=== PATIENT | female | born 1980 | race Caucasian/White ===

== ENCOUNTER 2017-06-28 18:26 | Emergency (ER) | payer OTHER ==
[2017-06-28 19:01] VITALS: BP 117/83
--- NOTE | 2017-06-28 21:33 | ED Physician Documentation ---
PD HPI UPPER EXT INJURY - Stated complaint Stated Complaint: RT FING LAC - Chief complaint Chief Complaint: Laceration - History obtained from History obtained from: Patient - History of Present Illness Location: Right, Finger (ring finger at PIP flexion crease.) Type of injury: Laceration (cut finger on edge of can few days ago and glued it and with bandage after cleasning it. It was good for couple days but glue came off it and opened up again. 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: Ovarian cancer, Other Other Past Medical History: supraventricular tachycardia - Past Surgical History Past Surgical History: Yes /INSPECTION AND TESTING SUPERVISOR: Oophrectomy - Present Medications Home Medications: Ambulatory Orders Medication Instructions Recorded Confirmed No Known Home Medications [No 06/28/17 06/28/17 Known Home Medications] - Allergies Allergies/Adverse Reactions: Allergies Allergy/AdvReac Type Severity Reaction Status Date / Time No Known Drug Allergies Allergy Verified 06/28/17 21:23 - Social History Does the pt smoke?: No Smoking Status: Never smoker Does the pt drink ETOH?: No Does the pt have substance abuse?: No - Immunizations Immunizations are current?: Yes - POLST Patient has POLST: No PD ED PE NORMAL - Vitals Vital signs reviewed: Yes - General General: Alert and oriented X 3, No acute distress, Well developed/nourished - Derm Derm: Normal color, Warm and dry - Extremities Extremities: Other (right ring finger with laceration of palmar DIP flexion crease. Wound appears clean and without signs of infection. ) Results - Vitals Vitals: Oxygen O2 Source Room air Procedures - Laceration (location) right ring finger Length in cm: 1.2 Wound type: Linear, Into subcut fat. No: Into muscle Neurovascular status: Sensory intact, Motor intact, Vascular intact Tendon involvement: Tendon intact. No: Tendon Injury Anesthesia: Lidocaine 1% Wound Preparation: Irrigated copiously NS Skin layer closure: Nylon, Interrupted, Size #-0 - enter number (4), Sutures - enter # (4) Other: Patient tolerated well, Tetanus UTD Complexity: Simple PD MEDICAL DECISION MAKING - ED course Complexity details: considered differential (delayed primary closure of well appearing wound without signs of infection. ), d/w patient Departure - Departure Disposition: 01 Home, Self Care Clinical Impression: Finger laceration Qualifiers: Encounter type: initial encounter Finger: ring finger Damage to nail status: without damage Foreign body presence: without foreign body Laterality: right Qualified Code(s): S61.214A - Laceration without foreign body of right ring finger without damage to nail, initial encounter Condition: Stable Record reviewed to determine appropriate education?: Yes Instructions: ED Laceration Hand Follow-Up: Isidoro Polk MD [Primary Care Provider] - Comments: It is okay to wash and shower. Clean off the wound twice a day with soap and water, or peroxide and water. Apply some antibiotic ointment to it to keep it moist. Also to watch for signs of infection such as purulence, redness or increasing pain. Return to your primary care or the ER at the specified time for suture removal. Suture removal 9 or 10 days. Tylenol or ibuprofen if needed for pains. Discharge Date/Time: 06/28/17 21:57
== END 2017-06-28 21:57 | disposition home or self-care (01) ==
LOC: ED 18:26
DX: S61.214A Laceration without foreign body of right ring finger without damage to nail, initial encounter (principal); W26.8XXA Contact with other sharp object(s), not elsewhere classified, initial encounter; Z85.43 Personal history of malignant neoplasm of ovary; Z90.721 Acquired absence of ovaries, unilateral
CPT/HCPCS: 12001; 99282; 99283

== ENCOUNTER 2018-05-18 12:13 | Emergency (ER) | payer OTHER ==
[2018-05-18 12:55] LABS: BASOPHILS % (AUTO) 0.5 %; EOSINOPHILS # (AUTO) 0.1 10^3/uL (0.0-0.7); EOSINOPHILS % (AUTO) 0.7 %; HGB - HEMOGLOBIN 13.7 g/dL (12.0-16.0); MEAN CORPUSCULAR HEMOGLOBIN 31.5 pg (27.0-31.0); MEAN CORPUSCULAR HGB CONC 34.3 g/dL (32.0-36.0); MEAN CORPUSCULAR VOLUME 91.7 fL (81.0-99.0); MEAN PLATELET VOLUME 9.4 fL (7.9-10.8); MONOCYTES # (AUTO) 0.6 10^3/uL (0.0-1.0); MONOCYTES % (AUTO) 6.3 %; NEUTROPHILS # (AUTO) 6.8 10^3/uL (1.5-6.6); NEUTROPHILS % (AUTO) 71.5 %; PLT - PLATELET COUNT 204 10^3/uL (130-450); RED BLOOD COUNT 4.35 10^6/uL (4.20-5.40); RED CELL DISTRIBUTION WIDTH 12.8 % (12.0-15.0); WHITE BLOOD COUNT 9.5 x10^3/uL (4.8-10.8)
[2018-05-18 13:04] LABS: ALBUMIN 4.3 g/dL (3.2-5.5); ALBUMIN/GLOBULIN RATIO 1.2 (1.0-2.2); BILIRUBIN,TOTAL 0.6 mg/dL (0.2-1.0); CALCIUM 9.2 mg/dL (8.5-10.3); CREATININE 0.7 mg/dL (0.4-1.0); TOTAL PROTEIN 7.8 g/dL (6.7-8.2)
--- NOTE | 2018-05-18 14:04 | ED Physician Documentation ---
History of Present Illness - Stated complaint Stated Complaint: LOWER ABD PX - Chief complaint Chief Complaint: General - History obtained from History obtained from: Patient - History of Present Illness Timing: How many days ago (4) Pain level max: 9 Pain level now: 6 Improved by: nohing Worsened by: movement, palpation - Additonal information Additional information: 38-year-old female with pelvic pain today. Was seen by gynecology this morning and sent here for an ultrasound to rule out ovarian torsion. She was seen by Dr. Gomez. Patient states R ovary was removed in the past. Hx of Cervical CA and LEEP procedures. 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, Other - Past Surgical History Past Surgical History: Yes /BREEDING MANAGER: Oophrectomy - Present Medications Home Medications: Ambulatory Orders Medication Instructions Recorded Confirmed No Known Home Medications 06/28/17 06/28/17 - Allergies Allergies/Adverse Reactions: Allergies Allergy/AdvReac Type Severity Reaction Status Date / Time No Known Drug Allergies Allergy Verified 06/28/17 21:23 - Social History Does the pt smoke?: No Smoking Status: Never smoker Does the pt drink ETOH?: No Does the pt have substance abuse?: No - Immunizations Immunizations are current?: Yes - POLST Patient has POLST: No PD ED PE NORMAL - Vitals Vital signs reviewed: Yes - General General: Alert and oriented X 3 - HEENT HEENT: Moist mucous membranes - Neck Neck: Supple, no meningeal sign - Cardiac Cardiac: RRR - Respiratory Respiratory: No respiratory distress, Clear bilaterally - Abdomen Abdomen: Soft, Non distended, Other (mild ttp LLQ) - Back Back: No spinal TTP - Derm Derm: Warm and dry - Neuro Neuro: Alert and oriented X 3 - Psych Psych: Normal mood, Normal affect Results - Vitals Vitals: Vital Signs - 24 hr 05/18/18 05/18/18 12:22 14:19 Temperature 36.2 C L 36.5 C Heart Rate 74 61 Respiratory 18 18 Rate Blood Pressure 116/75 116/78 O2 Saturation 100 100 Oxygen O2 Source Room air - Labs Labs: Laboratory Tests 05/18/18 05/18/18 05/18/18 12:43 12:43 13:13 WBC 9.5 RBC 4.35 Hgb 13.7 Hct 39.9 MCV 91.7 MCH 31.5 H MCHC 34.3 RDW 12.8 Plt Count 204 MPV 9.4 Neut # (Auto) 6.8 H Lymph # (Auto) 2.0 [place] # (Auto) 0.6 Eos # (Auto) 0.1 Baso # (Auto) 0.0 Absolute Nucleated RBC 0.01 Nucleated RBC % 0.1 Sodium 135 Potassium 3.5 Chloride 106 Carbon Dioxide 24 Anion Gap 5.0 L BUN 19 Creatinine 0.7 Estimated GFR (MDRD) 94 Glucose 132 H Calcium 9.2 Total Bilirubin 0.6 AST 19 ALT 13 Alkaline Phosphatase 53 Total Protein 7.8 Albumin 4.3 Globulin 3.5 Albumin/Globulin Ratio 1.2 Lipase 22 Urine Color YELLOW Urine Clarity CLEAR Urine pH 6.0 Ur Specific Lindsay <=1.005 Urine Protein NEGATIVE Urine Glucose (UA) NEGATIVE Urine Ketones NEGATIVE Urine Occult Blood SMALL H Urine Nitrite NEGATIVE Urine Bilirubin NEGATIVE Urine Urobilinogen 0.2 (NORMAL) Ur Leukocyte Esterase TRACE H Urine RBC 0-5 Urine WBC 4-5 Ur Squamous Epith Cells RARE Squamous Urine Bacteria Rare Ur Microscopic Review INDICATED Urine Culture Comments INDICATED Urine HCG, Qual NEGATIVE - Rads (name of study) pelvic US Radiology: Prelim report reviewed, EMP read contemporaneously, See rad report (No Doppler evidence of left ovarian torsion. . No intact left ovarian cyst. No free fluid or adnexal mass evident. Surgically absent right ovary. Prominent uterus with upper normal endometrial thickness at 13.5 mm without vascularity or discernible polyp. A 2.9 cm fundal subserosal fibroid. ) PD MEDICAL DECISION MAKING - ED course Complexity details: reviewed results, re-evaluated patient, considered differential, d/w patient, d/w systems consultant ED course: 38-year-old female presents to the emergency department with left-sided pelvic pain. Concern for ovarian torsion, ultrasound is normal for this. Does have a collapsing cyst on ultrasound, possible etiology of her pain? I discussed the case with gynecology, Dr. Gomez who recommends follow-up in the clinic. He wrote her for pain medication earlier today. Patient declines pain medication here. Patient counseled This document was made in part using voice recognition software. While efforts are made to proofread this document, sound alike and grammatical errors may occur. Departure - Departure Disposition: 01 Home, Self Care Clinical Impression: Nabothian cyst Ovarian cyst Qualifiers: Laterality: left Qualified Code(s): N83.202 - Unspecified ovarian cyst, left side Condition: Good Instructions: ED Cyst Ovarian Follow-Up: Isidoro Polk MD [Primary Care Provider] - Raudel Gomez MD [Provider Admit Priv/Credential] - Within 1 week Comments: Take the medications as prescribed by Dr. Gomez today. Return if you worsen. Do not drink alcohol or drive while on narcotic pain medicine. Note that many narcotic pain relievers also contain tylenol/acetaminophen. Please ensure that your total dose of acetaminophen from all sources does not exceed 3 grams (3000mg) per day. You may constipated on this medication, take a stool softener such as "Colace" twice a day while you are on it. Also recommend a [id number] laxative such as senna or MiraLAX any day that you do not have a bowel movement. If you received narcotic pain medication in the emergency department, do not drive or operate machinery for the next 24 hours. Discharge Date/Time: 05/18/18 14:42
[2018-05-18 14:21] VITALS: BP 116/78
[2018-05-18 14:22] LABS: BILIRUBIN,URINE NEGATIVE (NEGATIVE); GLUCOSE, URINE (UA) NEGATIVE (NEGATIVE); KETONES,URINE (UA) NEGATIVE (NEGATIVE); LEUKOCYTE ESTERASE, URINE TRACE (NEGATIVE); NITRITE,URINE NEGATIVE (NEGATIVE); OCCULT BLOOD,URINE SMALL (NEGATIVE); PROTEIN,URINE NEGATIVE (NEGATIVE); UROBILINOGEN,URINE 0.2 (NORMAL) E.U./dL (NORMAL)
[2018-05-18 14:36] LABS: CLARITY,URINE CLEAR (CLEAR); HCG UR QUAL NEGATIVE
[2018-05-18 14:37] LABS: BACTERIA,URINE Rare /HPF (None Seen); RBC,URINE 0-5 /HPF (0-5); SQUAMOUS EPITHELIAL CELL,UR RARE Squamous (<= Few)
--- NOTE | 2018-05-18 15:10 | Ultrasound Report ---
Reason: pelvic pain, L Procedure Date: 05/18/2018 Accession Number: [id number] / [id number] Procedure: US - Pelvic w/Transvag+Doppler Comp CPT Code: FULL RESULT: EXAM: PELVIC ULTRASOUND WITH OVARIAN DOPPLER EXAM DATE: 05/18/2018 12:54 PM. CLINICAL HISTORY: Left pelvic pain. Rule out left ovarian torsion. COMPARISON: Noncontrast CT abdomen and pelvis 06/28/2015. TECHNIQUE: Realtime transabdominal pelvic scan for general evaluation, followed by transvaginal scan for further detail, with image documentation. Color flow Doppler and spectral analysis of left ovary performed to assess blood flow. FINDINGS: Uterus: Anteverted 11.8 x 5.1 x 6 cm in transabdominal scan, volume 188 cc. Central endometrial echo complex measures 13.5 mm thick on TB skin, without vascularity on color Doppler. No intracavitary fluid or polyp identified. Mildly heterogeneous myometrial echotexture. A subserosal fundal fibroid measures 2.1 x 1.8 x 2.9 cm. Cervix: No abnormality identified. Right Ovary: Surgically absent. Left Ovary: 3.7 x 2.7 x 3.8 cm, volume 5.3 cc. A probable small collapsed cystic remnant. No cyst by size criteria. Left ovarian Doppler: Color flow and arterial and venous spectral Doppler documented in the left ovary. Peak systolic velocity 32 cm/s, RI 0.65. Free Fluid: None. Other: No adnexal mass evident. IMPRESSION: 1. No Doppler evidence of left ovarian torsion. 2. No intact left ovarian cyst. No free fluid or adnexal mass evident. 3. Surgically absent right ovary. 4. Prominent uterus with upper normal endometrial thickness at 13.5 mm without vascularity or discernible polyp. A 2.9 cm fundal subserosal fibroid. RADIA
== END 2018-05-18 14:42 | disposition home or self-care (01) ==
LOC: ED 12:13
DX: N88.8 Other specified noninflammatory disorders of cervix uteri (principal); N83.202 Unspecified ovarian cyst, left side; Z11.3 Encounter for screening for infections with a predominantly sexual mode of transmission
CPT/HCPCS: 36415; 76830; 76856; 80053; 81001; 81003; 81025; 83690; 85025; 87086; 87491; 87591; 93975; 99283

== ENCOUNTER 2018-05-18 17:16 | Outpatient (CLI) | payer OTHER | END 2018-05-18 17:17 | disposition home or self-care (01) | LOC: LAB.R 17:16 | PROVIDERS: ATTEND Obstetrics & Gynecology | DX: Z11.3 Encounter for screening for infections with a predominantly sexual mode of transmission (principal) | CPT/HCPCS: 87491; 87591 ==

== ENCOUNTER 2018-06-26 13:38 | Outpatient (CLI) | payer OTHER ==
--- NOTE | 2018-06-26 17:06 | Ultrasound Report ---
Reason: ENDOMETRIUM THICKENED Procedure Date: 06/26/2018 Accession Number: [id number] / [id number] Procedure: US - Transvaginal CPT Code: FULL RESULT: EXAM: PELVIC ULTRASOUND. EXAM DATE: 06/26/2018 02:36 PM. CLINICAL HISTORY: Endometrium thickened. COMPARISON: None. TECHNIQUE: Transvaginal only pelvic ultrasound. FINDINGS: Uterus: 7.8 x 3.8 x 4.9 cm, volume 75.9 cc. Anteverted position. Uterine fibroid as below. Echogenic myometrial focus measures up to 0.2 cm. Masses: Subtle 1.4 x 1.5 x 1.7 cm anterior uterine fundal intramural fibroid. Endometrium: 2.9 mm. No endometrial mass or polyp. Cervix: Incidental nabothian cysts are present. Right Ovary: Ovary not seen. No adnexal abnormality. Limitation secondary to bowel gas. Left Ovary: 3.4 x 2.7 x 2.5 cm, volume 12 cc. Normal echotexture and blood flow. Multiple left ovarian follicles with benign features. Free Fluid: None. Other: None. IMPRESSION: 1. Right ovary surgically absent. Otherwise, left ovary and both adnexa are normal. 2. No endometrial mass or polyp. 3. 1.7 cm anterior uterine intramural fibroid. RADIA
== END 2018-06-26 13:39 | disposition home or self-care (01) ==
LOC: DI 13:38
PROVIDERS: ATTEND Obstetrics & Gynecology
DX: D25.1 Intramural leiomyoma of uterus (principal)
CPT/HCPCS: 76830

== ENCOUNTER 2022-08-26 09:39 | Emergency (ER) | payer MEDICAID, OTHER ==
--- NOTE | 2022-08-26 10:21 | ED Physician Documentation ---
PD HPI HEADACHE - Stated complaint Stated Complaint: MIGRAINE - Chief complaint Chief Complaint: Neuro - History obtained from History obtained from: Patient - History of Present Illness Timing - onset: How many months ago (1) Timing - onset during: Light activity Timing - duration: Months (1) Timing - details: Gradual onset, Still present (the past month has had frequent intermittent to continual headache with pressure feeling of head and some nausea, light sensitive. Longest without headache has been 2 days, but mostly fraire ving it every day. Less during night.), Intermittant, Waxing and waning Worst headache ever?: Worst headache ever? (has had occasional migraines about every few months and can take Ibuprofen and rest in dark for it. These have not helped this month. The character of headache feels like other migraines, but not pattern/duration.) Location: Back, Right Quality: Throbbing, Aching Associated symptoms: Nausea. No: Fever, Stiff neck, Vomiting, Numbness Improved by: No: Dark room, Meds Worsened by: Light, Moving Contributing factors: No: Anticoagulated, Hypertension, Recent illness, Trauma Similar symptoms before: No diagnosis (has self-diagnoses with igraines and takes OTC meds. Dx seems reasonable though and most likely.) Recently seen: Not recently seen Review of Systems Constitutional: denies: Fever, Chills Nose: denies: Rhinorrhea / runny nose, Congestion Throat: denies: Sore throat Respiratory: denies: Cough GI: reports: Nausea. denies: Abdominal Pain, Vomiting Skin: denies: Rash Musculoskeletal: denies: Neck pain, Back pain PD PAST MEDICAL HISTORY - Past Medical History Cardiovascular: Other Neuro: Migraines (infrequent and uses OTC meds. 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, Other - Past Surgical History Past Surgical History: Yes /STRICKLER ATTENDANT: Oophrectomy - Present Medications Home Medications: Ambulatory Orders Medication Instructions Recorded Confirmed Ondansetron Odt [Zofran] 4 mg TL Q6H PRN #10 tablet 08/26/22 Sumatriptan Succinate [Imitrex] 50 mg PO Q6H PRN #6 tablet 08/26/22 dexAMETHasone [Decadron] 4 mg PO DAILY #5 tablet 08/26/22 - Allergies Allergies/Adverse Reactions: Allergies Allergy/AdvReac Type Severity Reaction Status Date / Time No Known Drug Allergies Allergy Verified 08/26/22 09:48 - Social History Does the pt smoke?: No Smoking Status: Never smoker Does the pt drink ETOH?: No Does the pt have substance abuse?: No - Immunizations Immunizations are current?: Yes - POLST Patient has POLST: No PD ED PE NORMAL - Vitals Vital signs reviewed: Yes - General General: Alert and oriented X 3, Well developed/nourished, Other (appears in discomfort due to headache. 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, No motor deficit, No sensory deficit, Normal speech, Other Results - Vitals Vitals: Vital Signs - 24 hr 08/26/22 08/26/22 08/26/22 09:45 11:47 12:56 Temperature 36.3 C L Heart Rate 106 H 80 75 Respiratory 16 18 16 Rate Blood Pressure 138/86 H 109/74 107/70 O2 Saturation 98 99 95 08/26/22 13:46 Temperature Heart Rate 78 Respiratory 16 Rate Blood Pressure O2 Saturation 98 Oxygen O2 Source Room air - Labs Labs: Laboratory Tests 08/26/22 08/26/22 11:35 12:34 WBC 8.3 RBC 4.73 Hgb 14.3 Hct 43.8 MCV 92.6 MCH 30.2 MCHC 32.6 RDW 12.9 Plt Count 140 MPV 12.7 H Neut # (Auto) 2.9 Lymph # (Auto) 4.8 H [place] # (Auto) 0.5 Eos # (Auto) 0.1 Baso # (Auto) 0.1 Absolute Nucleated RBC 0.00 Nucleated RBC % 0.0 Sodium 140 Potassium 3.4 L Chloride 106 Carbon Dioxide 24 Anion Gap 10.0 BUN 12 Creatinine 0.6 Estimated GFR (MDRD) 110 Glucose 99 Calcium 8.6 Total Bilirubin 0.7 AST 51 H ALT 72 H Alkaline Phosphatase 78 C-Reactive Protein < 1.0 Total Protein 7.1 Albumin 3.6 Globulin 3.5 Albumin/Globulin Ratio 1.0 Lipase 30 - Rads (name of study) brain MRI Relevant Findings:: Prelim report reviewed (normal exam. ), See rad report PD Medical Decision Making - ED course Complexity details: reviewed results, re-evaluated patient (she is feeling the headache mostly all gone with IV fluids, toradol, COmpazine targeted at migraine. ), considered differential (infrequent to now daily/regular headaches the past month. Concern for structural issues such as tumors, aneurysms, bleeds, MS. Was not injury related and does not seem infectious. MRI brain is best option for imaging to include main differential. ), d/w patient Departure - Departure Disposition: 01 Home, Self Care Clinical Impression: Migraine with status migrainosus Condition: Stable Record reviewed to determine appropriate education?: Yes Instructions: ED Headache Migraine Follow-Up: Isidoro Polk MD [Primary Care Provider] - Prescriptions: dexAMETHasone [Decadron] 4 mg PO DAILY #5 tablet Sumatriptan Succinate [Imitrex] 50 mg PO Q6H PRN #6 tablet PRN Reason: Migraine Ondansetron Odt [Zofran] 4 mg TL Q6H PRN #10 tablet PRN Reason: Nausea / Vomiting Comments: Your brain MRI was normal without any signs of abnormalities. Your symptoms are suggestive of a status migraine and it is good that you have improvement with medications here targeted towards migraine type headaches. I would suggest Decadron steroid daily for 5 more days to treat the migraine and try to reduce the chance of rebound or recurrence. Tylenol if needed for mild pains. Stay well-hydrated. If this remains away then I would just wait and see what your next migraine pattern would be. For subsequent migraines you can do the prior ibuprofen or Tylenol or you could additionally add Zofran for nausea and sumatriptan migraine for particular medication. Commonly these will help within 20 or 30 minutes to resolve the migraine. Over prescription for several of these. Try them over the next few headaches. Follow-up with your primary care if its working well for you or your if not then what to try. Return if persistent or consistent headache again. I sent your prescriptions to [facility] pharmacy. Discharge Date/Time: 08/26/22 13:47
[2022-08-26] MEDS ORDERED: KETOROLAC 15 MG/ML VIAL IVP STA (11:11)
[2022-08-26] MEDS ORDERED: SODIUM CHLORIDE 0.9% 1,000 ML IV STA (11:11)
[2022-08-26] MEDS ORDERED: DEXAMETHASONE 10 MG/ML VIAL IVP STA (11:12)
[2022-08-26] MEDS ORDERED: PROCHLORPERAZINE 10 MG/2 ML VIAL IVP STA (11:12)
[2022-08-26 11:49] LABS: BASOPHILS # (AUTO) 0.1 10^3/uL (0.0-0.1); EOSINOPHILS # (AUTO) 0.1 10^3/uL (0.0-0.7); HCT - HEMATOCRIT 43.8 % (37.0-47.0); HGB - HEMOGLOBIN 14.3 g/dL (12.0-16.0); LYMPHOCYTES # (AUTO) 4.8 10^3/uL (1.5-3.5); LYMPHOCYTES % (AUTO) 57.3 %; MEAN CORPUSCULAR HEMOGLOBIN 30.2 pg (27.0-31.0); MEAN CORPUSCULAR HGB CONC 32.6 g/dL (32.0-36.0); MEAN CORPUSCULAR VOLUME 92.6 fL (81.0-99.0); MEAN PLATELET VOLUME 12.7 fL (7.9-10.8); MONOCYTES # (AUTO) 0.5 10^3/uL (0.0-1.0); MONOCYTES % (AUTO) 6.2 %; NEUTROPHILS # (AUTO) 2.9 10^3/uL (1.5-6.6); NEUTROPHILS % (AUTO) 34.3 %; PLT - PLATELET COUNT 140 10^3/uL (130-450); RED BLOOD COUNT 4.73 10^6/uL (4.20-5.40); RED CELL DISTRIBUTION WIDTH 12.9 % (12.0-15.0); WHITE BLOOD COUNT 8.3 x10^3/uL (4.8-10.8)
--- NOTE | 2022-08-26 12:46 | MRI Report ---
PROCEDURE: BRAIN WO INDICATIONS: headache for 1 month TECHNIQUE: Noncontrast axial T1 spin echo, axial T2 fast spin echo, sagittal and axial FLAIR, coronal T2 fast sp in echo, axial gradient echo, axial diffusion and ADC through the brain. COMPARISON: None. FINDINGS: Image quality: Excellent. CSF Spaces: Basal cisterns are patent. No extra-axial fluid collections. Ventricles are normal in size and shape. Brain: No intracranial masses or hemorrhage. Littlejohn/white matter interface is normal. Brainstem appe ars normal. Diffusion-weighted images demonstrate no acute ischemic insult. No chronic ischemic ins ults. Normal intravascular flow voids are present. Skull and face: Calvarium has normal marrow signal. Orbits appear normal. Sinuses: Sinuses and mastoids are clear. IMPRESSION: No acute intracranial process. Reviewed by: Antony Schaefer on 08/26/2022 12:45 PM PDT Approved by: Antony Schaefer on 08/26/2022 12:45 PM PDT Station ID: [id number]
[2022-08-26 12:56] LABS: ALBUMIN 3.6 g/dL (3.2-5.5); ALKALINE PHOSPHATASE 78 IU/L (42-121); ALT ALANINE AMINOTRANSFERASE 72 IU/L (10-60); AST ASPARTATE AMINOTRANSFERASE 51 IU/L (10-42); BILIRUBIN,TOTAL 0.7 mg/dL (0.2-1.0); BUN - BLOOD UREA NITROGEN 12 mg/dL (6-20); CALCIUM 8.6 mg/dL (8.5-10.3); CARBON DIOXIDE - CO2 24 mmol/L (21-32); CHLORIDE 106 mmol/L (101-111); CREATININE 0.6 mg/dL (0.4-1.0); GFR - MDRD 110 (>89); GLUCOSE 99 mg/dL (70-100); LIPASE 30 U/L (22-51); POTASSIUM 3.4 mmol/L (3.5-5.0); SODIUM 140 mmol/L (135-145); TOTAL PROTEIN 7.1 g/dL (6.7-8.2)
[2022-08-26 12:57] VITALS: BP 107/70
[2022-08-26 12:57] LABS: CRP - C-REACTIVE PROTEIN < 1.0 mg/dL (0-1.0)
== END 2022-08-26 13:47 | disposition home or self-care (01) ==
LOC: ED 09:39
DX: G43.901 Migraine, unspecified, not intractable, with status migrainosus (principal)
CPT/HCPCS: 36415; 80053; 83690; 85025; 86140; 96374; 96375; 99283

== ENCOUNTER 2024-01-04 19:20 | Emergency (ER) | payer OTHER, MEDICAID ==
--- NOTE | 2024-01-04 19:57 | ED Physician Documentation ---
History of Present Illness - Stated complaint Stated Complaint: CHEST PX - History obtained from History obtained from: Patient - History of Present Illness Timing: Prior to arrival - Additonal information Additional information: Patient is a 43-year-old female presenting to the emergency department with anterior chest pain. Patient notes symptoms have been going on for approximately 3 days. About 15 years ago patient notes she was diagnosed with SVT. She had follow-up with cardiology for few years with telemetry and did not have any procedures done as she has been able to control your symptoms with relaxation techniques. She notes last night she had a severe episode where her face turned flushed she felt her heart beating and she had severe chest pain 10 out of 10 at the time. She notes her symptoms have been persistent since then. With persistent anterior chest pain. She notes she has been more stressed recently. PD PAST MEDICAL HISTORY - Past Medical History Cardiovascular: Other Neuro: Migraines (infrequent and uses OTC meds. 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: Ovarian cancer, Other - Past Surgical History Past Surgical History: Yes /AGRICULTURAL RESEARCHER: Oophrectomy - Present Medications Home Medications: Ambulatory Orders Medication Instructions Recorded Confirmed Ondansetron Odt [Zofran] 4 mg TL Q6H PRN #10 tablet 08/26/22 Sumatriptan Succinate [Imitrex] 50 mg PO Q6H PRN #6 tablet 08/26/22 dexAMETHasone [Decadron] 4 mg PO DAILY #5 tablet 08/26/22 Azithromycin [Zithromax] 1 tab PO DAILY #4 tab 01/04/24 - Allergies Allergies/Adverse Reactions: Allergies Allergy/AdvReac Type Severity Reaction Status Date / Time No Known Drug Allergies Allergy Verified 01/04/24 19:48 - Social History Does the pt smoke?: No Smoking Status: Never smoker Does the pt drink ETOH?: No Does the pt have substance abuse?: No - Immunizations Immunizations are current?: Yes - POLST Patient has POLST: No PD ED PE NORMAL - Vitals Vital signs reviewed: Yes - General General: Alert and oriented X 3 - HEENT HEENT: Atraumatic - Neck Neck: Supple, no meningeal sign, No JVD - Cardiac Cardiac: RRR, No murmur, No gallop, No rub - Respiratory Respiratory: No respiratory distress, Clear bilaterally, Other (No reproducible anterior chest tenderness on examination) - Abdomen Abdomen: Normal bowel sounds, Soft, Non tender, Non distended - Derm Derm: Normal color, No rash - Extremities Extremities: No deformity, No tenderness to palpate, No edema - Neuro Neuro: Alert and oriented X 3, juvenile counselor 2-12 intact Eye Opening: Spontaneous Motor: Obeys Commands Verbal: Oriented GCS Score: 15 Results - Vitals Vitals: Vital Signs - 24 hr 01/04/24 01/04/24 19:45 20:35 Temperature 36.8 C Heart Rate 77 78 Respiratory 17 20 Rate Blood Pressure 113/78 113/78 O2 Saturation 98 97 Oxygen O2 Source Room air - EKG (time done) 1934 EKG releavant findings:: EKG personally interpreted by author of this note. Relevant findings are: Rate: Rate (enter#), Gian, Tachy, Other Rhythm: NSR Niland: Normal Intervals: Normal [place] QRS: Normal Ischemia: Normal ST segments Compare to prior EKG: Unchanged from prior EKG - Labs Labs: Laboratory Tests 01/04/24 01/04/24 19:59 19:59 WBC 9.9 RBC 4.02 L Hgb 12.4 Hct 38.0 MCV 94.5 MCH 30.8 MCHC 32.6 RDW 12.1 Plt Count 197 MPV 10.9 H Neut # (Auto) 5.3 Lymph # (Auto) 3.6 H Davie # (Auto) 0.8 Eos # (Auto) 0.1 Baso # (Auto) 0.1 Absolute Nucleated RBC 0.00 Nucleated RBC % 0.0 Sodium 137 Potassium 3.8 Chloride 104 Carbon Dioxide 28 Anion Gap 5.0 L BUN 19 Creatinine 0.8 Estimated GFR (MDRD) 79 L Glucose 84 Calcium 9.3 Magnesium 1.7 Total Bilirubin 0.4 AST 12 ALT 10 Alkaline Phosphatase 51 Troponin I High Sens < 2.3 L Total Protein 6.8 Albumin 4.1 Globulin 2.7 Albumin/Globulin Ratio 1.5 Lipase 32 - Rads (name of study) Chest X-ray Relevant Findings:: EMP independent interpretation of test PD Medical Decision Making - ED course Complexity details: reviewed old records, reviewed results ED course: Patient is a 43-year-old female presenting to the emergency department with anterior chest pain going on for the past 3 days she has tried Prilosec at home with no relief. She notes this was 2 days ago and today she tried Pepto-Bismol with no relief. She notes her symptoms feel similar to her reflux but she is concerned as she has a history of SVT that she had an episode last night that was associated with severe 10 out of 10 anterior chest pain. Vitals are stable on arrival. Physical exam shows no reproducible chest pain pulses intact in upper and lower extremities. No significant pitting edema. PERC score of 0 on arrival. Labs here in the emergency department obtained showing EKG shows normal sinus rhythm no signs of SVT. There is no elevation in troponin and CMP unremarkable and CBC shows no significant leukocytosis or anemia. Discussed with patient she feels better here in the emergency department after Pepcid. Patient EKG showed no acute ischemia no signs of SVT. Given chest x- ray findings of possible atypical pneumonia we will start patient on a short course of azithromycin as this could explain her chest pain. Instructed patient to follow-up with her PCP in the outpatient setting in 1 week to ensure resolution of symptoms. Instructed patient to return with any chest pain shortness of breath dizziness lightheadedness palpitations or any other new or worsening symptoms. Patient understands and is agreeable with this plan. Departure - Departure Disposition: 01 Home, Self Care Clinical Impression: Atypical pneumonia, Atypical chest pain Condition: Good Instructions: ED Chest Pain Atypical Unkn Cause Comments: You are seen here in the emergency department and chest x-ray did show possible pneumonia we will cover you with antibiotics prescription sent to your pharmacy. I have started you on Pepcid as well for possible reflux symptoms that could be causing your symptoms as well. You need to follow-up with your PCP in 1 week to ensure resolution of symptoms. If your symptoms persist you develop any shortness of breath dizziness lightheadedness palpitations or any other new or worsening symptoms you should return to the emergency department.
[2024-01-04 19:58] VITALS: BP 113/78
[2024-01-04 20:08] LABS: BASOPHILS # (AUTO) 0.1 10^3/uL (0.0-0.1); BASOPHILS % (AUTO) 0.5 %; EOSINOPHILS # (AUTO) 0.1 10^3/uL (0.0-0.7); EOSINOPHILS % (AUTO) 0.8 %; HGB - HEMOGLOBIN 12.4 g/dL (12.0-16.0); LYMPHOCYTES # (AUTO) 3.6 10^3/uL (1.5-3.5); LYMPHOCYTES % (AUTO) 36.6 %; MEAN CORPUSCULAR HEMOGLOBIN 30.8 pg (27.0-31.0); MEAN CORPUSCULAR HGB CONC 32.6 g/dL (32.0-36.0); MEAN CORPUSCULAR VOLUME 94.5 fL (81.0-99.0); MEAN PLATELET VOLUME 10.9 fL (7.9-10.8); MONOCYTES # (AUTO) 0.8 10^3/uL (0.0-1.0); MONOCYTES % (AUTO) 7.7 %; NEUTROPHILS # (AUTO) 5.3 10^3/uL (1.5-6.6); NEUTROPHILS % (AUTO) 54.2 %; PLT - PLATELET COUNT 197 10^3/uL (130-450); RED BLOOD COUNT 4.02 10^6/uL (4.20-5.40); RED CELL DISTRIBUTION WIDTH 12.1 % (12.0-15.0); WHITE BLOOD COUNT 9.9 x10^3/uL (4.8-10.8)
[2024-01-04 20:14] LABS: MAGNESIUM 1.7 mg/dL (1.7-2.3)
[2024-01-04 20:20] LABS: ALBUMIN 4.1 g/dL (3.2-5.5); ALBUMIN/GLOBULIN RATIO 1.5 (1.0-2.2); ALKALINE PHOSPHATASE 51 IU/L (42-121); ALT ALANINE AMINOTRANSFERASE 10 IU/L (10-60); AST ASPARTATE AMINOTRANSFERASE 12 IU/L (10-42); BILIRUBIN,TOTAL 0.4 mg/dL (0.2-1.0); BUN - BLOOD UREA NITROGEN 19 mg/dL (6-20); CALCIUM 9.3 mg/dL (8.5-10.3); CARBON DIOXIDE - CO2 28 mmol/L (21-32); CHLORIDE 104 mmol/L (101-111); CREATININE 0.8 mg/dL (0.6-1.3); GFR - MDRD 79 (>89); GLUCOSE 84 mg/dL (74-104); LIPASE 32 U/L (11-82); POTASSIUM 3.8 mmol/L (3.5-4.5); SODIUM 137 mmol/L (135-145); TOTAL PROTEIN 6.8 g/dL (6.4-8.9)
[2024-01-04 20:25] LABS: TROPONIN I HIGH SENSITIVITY < 2.3 ng/L (2.3-14.8)
--- NOTE | 2024-01-04 20:35 | XRAY Report ---
PROCEDURE: Chest 2V INDICATIONS: chest pain, sob TECHNIQUE: 2 views of the chest were acquired. COMPARISON: None. FINDINGS: Surgical changes and devices: None. Lungs and pleura: No dense consolidation or pleural effusion' Mildly prominent interstitium. Mediastinum: Normal heart size Bones and chest wall: Mild degenerative changes IMPRESSION: Possible mild prominence of the pulmonary interstitium could represent atypical infection or imaging artifact. No dense consolidation or pleural effusion. Reviewed by: Wallace Franks MD on 01/04/2024 8:34 PM PDT Approved by: Wallace Franks MD on 01/04/2024 8:34 PM PDT Station ID: [id number]
[2024-01-04] MEDS: GI COCKTAIL 120 ML BOTTLE PO STA (21:11)
[2024-01-04] MEDS: AZITHROMYCIN 250 MG TABLET PO STA (21:20)
[2024-01-04] MEDS: FAMOTIDINE 20 MG TABLET PO STA (21:20)
[2024-01-04 21:29] VITALS: O2SAT 98
== END 2024-01-04 21:31 | disposition home or self-care (01) ==
LOC: ED 19:20
DX: J18.9 Pneumonia, unspecified organism (principal); R07.89 Other chest pain
CPT/HCPCS: 36415; 71046; 80053; 83690; 83735; 84484; 85025; 93005; 99283; 99284; A9270